=== PATIENT | female | born 1960 | race Caucasian/White ===

== ENCOUNTER 2024-12-18 08:49 | Outpatient (CLI) | payer OTHER, SELFPAY ==
[2024-12-18 09:38] VITALS: BP 137/92; PULSE 77; RESP 26; O2SAT 99
[2024-12-18 09:39] VITALS: BP 139/92; PULSE 78; RESP 16; O2SAT 98
[2024-12-18] MEDS: LIDOCAINE 1% (PF) 5 ML INJ ×2 (09:41→09:42)
[2024-12-18] MEDS: TRIAMCINOLONE 40 MG/ML VIAL INJ (09:42)
[2024-12-18 09:44] VITALS: BP 168/79; PULSE 65; RESP 16; O2SAT 98
[2024-12-18 09:48] VITALS: BP 137/84; PULSE 77; RESP 16; O2SAT 97
--- NOTE | 2024-12-18 12:26 | PM.PROC.IR.1 ---
Date/Time/Diagnoses Date of procedure: 12/18/24 Time of procedure: 09:30 Pre-procedure diagnosis: Sacroiliac joint pain, sacroiliitis Post-procedure diagnosis: same Procedure Notes Procedure: Left sacroiliac joint injection Indications: Left sacroiliac joint pain, sacroiliitis Physician: Manuel Dennis Total sedation minutes: 0 Complications: none Procedure in detail & Post-procedure care: Patient is here for the planned procedure today as noted. No significant change since the last office visit. For additional clinical scenario please see those office notes. Focused exam: Vital signs reviewed as charted on intake. Gen: Well developed. No acute distress. CV: RRR, no M/R/G Chest: Non-labored breathing, CTAB. Psych: Alert and well-oriented. Mood/Affect: normal. Patient suitable for the planned procedure today: Yes === The following procedure was performed today: Sacroiliac joint injection with fluoroscopic guidance (39382) Approach: Posterior, inferior pole Laterality: Left Soft tissue: [1% lidocaine 1.5 mL] Injectate: [1 mL of triamcinolone (40mg/mL) in 2 mL 1% lidocaine] Fluoroscopy Agent: Isovue 300-M 1 mL Notes: Referred by Dr. Mueller. Preprocedure pain 3/10, postprocedure pain /10. Procedure: Informed consent was obtained and all patient questions were answered. After discussing the risks, benefits, and alternatives to the procedure, the patient expressed understanding and wished to proceed. The patient was brought to the procedure suite and placed in the prone position, and prepped and draped in a sterile fashion. A pre-procedural pause was conducted to verify: correct patient identity, procedure to be performed and as applicable, correct side and site, correct patient position, and any special requirements. The fluoroscopic C-arm was positioned for optimal visualization of the targeted sacroiliac (SI) joint. The inferior portion of the SI joint was localized under fluoroscopic visualization and local anesthetic was utilized for soft tissue local anesthesia. A 22 gauge spinal needle was inserted into the fluoroscopically hyperlucent region within the SI joint. Aspiration negative. If noted above, the noted contrast agent was injected and a partial arthrogram was obtained. Multiplanar imaging was performed for confirmation and appropriate images were saved. The steroid/anesthetic solution noted above was then injected into the SI joint. The patient tolerated the procedure well and was discharged after an appropriate period of observation. If there are any complications or concerns, the patient was instructed to call us. The patient is to follow-up with the ordering provider in 2-3 weeks/as planned. This note was compiled using voice recognition software and therefore may contain typos. Please contact the author with any questions or concerns.
== END 2024-12-18 10:02 | disposition home or self-care (01) ==
PROVIDERS: PCP Nurse Practitioner Acute Care; Referring Provider Physical Medicine & Rehabilitation; Visit Provider Physical Medicine & Rehabilitation
DX: M46.1 Sacroiliitis, not elsewhere classified (principal); M53.3 Sacrococcygeal disorders, not elsewhere classified; G89.29 Other chronic pain
CPT/HCPCS: 27096